=== PATIENT | female | born 1975 | race Hispanic/Latino ===

== ENCOUNTER 2021-10-27 12:52 | Emergency (ER) | payer OTHER ==
[~2021-10-27] VITALS: Ht 152.4 cm; Wt 61.7 kg
[2021-10-27 13:25] VITALS: BP 177/86
[2021-10-27] MEDS ORDERED: ENALAPRIL MALEATE 10 MG TABLET PO SCH (13:30)
[2021-10-27 13:33] LABS: EOSINOPHILS % (AUTO) 0.9 % (0.0-8.0); HEMATOCRIT 32.7 % (36-48); LYMPHOCYTES % (AUTO) 22.3 % (21.0-51.0); MEAN CORPUSCULAR HEMOGLOBIN 21.7 pg (27.0-33.0); MEAN CORPUSCULAR HGB CONC 30.3 g/dL (32.0-36.0); MEAN CORPUSCULAR VOLUME 71.7 fL (79-99); MONOCYTES % (AUTO) 8.5 % (3.0-13.0); NEUTROPHILS % (AUTO) 66.9 % (40.0-77.0); PLATELET COUNT (AUTO) 354 K/uL (130-400); RED BLOOD CELL COUNT(AUTO) 4.56 MIL/uL (4.00-5.50); RED CELL DISTRIBUTION WIDTH 18.4 % (11.0-15.5)
[2021-10-27] MEDS ORDERED: ENALAPRIL MALEATE 5 MG TAB ONE (13:35)
[2021-10-27 13:41] LABS: APPEARANCE,URINE Cloudy (CLEAR); BILIRUBIN,URINE Negative (NEGATIVE); COLOR,URINE Yellow (YELLOW); GLUCOSE, URINE (UA) Negative (NEGATIVE); KETONES,URINE Negative (NEGATIVE); LEUKOCYTE ESTERASE ,URINE Moderate (NEGATIVE); NITRATE,URINE Negative (NEGATIVE); OCCULT BLOOD,URINE Negative (NEGATIVE); PH,URINE 6.5 (5.0-8.0); PROTEIN,URINE POS 1+ mg/dL (NEGATIVE)
[2021-10-27 13:44] LABS: CREATININE 0.6 mg/dL (0.5-1.5)
[2021-10-27 13:48] LABS: TOTAL PROTEIN, SERUM 8.2 g/dL (6.0-8.3)
[2021-10-27 13:58] LABS: RBC,URINE 0-1 /HPF (0-1)
[2021-10-27] MEDS ORDERED: CEPH500B PO (13:58)
[2021-10-27] MEDS ORDERED: ENAL10TA18 PO (13:58)
[2021-10-27 13:59] LABS: BACTERIA,URINE Few /HPF (None Seen)
[2021-10-27] MEDS ORDERED: CEPHALEXIN 500 MG CAPSULE PO ONE (14:00)
== END 2021-10-27 15:12 | disposition home or self-care (01) ==
LOC: EDH 12:52 → EDSEX 12:52 → EDH 15:12
DX: I10 Essential (primary) hypertension (principal); N39.0 Urinary tract infection, site not specified; D64.9 Anemia, unspecified; F17.200 Nicotine dependence, unspecified, uncomplicated; Z98.890 Other specified postprocedural states
CPT/HCPCS: 36415; 80053; 81001; 85025; 87088